=== PATIENT | male | born 1985 | race Caucasian/White ===

== ENCOUNTER 2019-01-27 19:41 | Emergency (ER) | payer BC ==
[~2019-01-27] VITALS: Ht 188 cm; Wt 77.1 kg
[~2019-01-27 19:41] MED LIST: CEPH500 PO; HYDACE5 PO
[2019-01-27] MEDS ORDERED: IBUP600 PO (23:35)
== END 2019-01-27 23:50 | disposition home or self-care (01) ==
LOC: ER 19:41
DX: R07.9 Chest pain, unspecified (principal)
CPT/HCPCS: 71046; 93005; 93010; 99283-25